=== PATIENT | male | born 1955 | race Caucasian/White ===

== ENCOUNTER → 2023-11-10 14:32 | Outpatient (REF) | payer OTHER, SELFPAY | LOC: RAD 14:32 | PROVIDERS: ATTENDING PHYSICIAN Family Medicine | DX: R60.0 Localized edema (principal); I87.2 Venous insufficiency (chronic) (peripheral) | CPT/HCPCS: 93970 ==

== ENCOUNTER → 2024-02-03 13:00 | Outpatient (REF) | payer OTHER, SELFPAY | LOC: HWRAD 13:00 | PROVIDERS: ATTENDING PHYSICIAN Surgery; FAMILY PHYSICIAN Family Medicine | DX: Z85.528 Personal history of other malignant neoplasm of kidney (principal); Z90.5 Acquired absence of kidney; N18.32 Chronic kidney disease, stage 3b | CPT/HCPCS: 71046; 74176 ==

== ENCOUNTER → 2025-02-09 12:25 | Outpatient (REF) | payer OTHER, SELFPAY | LOC: HWRAD 12:25 | PROVIDERS: ATTENDING PHYSICIAN Surgery; FAMILY PHYSICIAN Family Medicine | DX: C64.2 Malignant neoplasm of left kidney, except renal pelvis (principal) | CPT/HCPCS: 71046; 74176 ==

== ENCOUNTER 2025-02-18 21:36 | Emergency (ER) | payer OTHER, SELFPAY ==
[2025-02-18 21:39] VITALS: BP 163/86
[2025-02-18 22:27] VITALS: BMI 27.2
--- NOTE | 2025-02-18 22:34 | ED.GENMED ---
History of Present Illness
General
Chief Complaint: Abdominal Pain
Source: patient
Exam Limitations: none
Time Seen by Provider: 02/18/25 22:15
History of Present Illness
History of Present Illness:
69-year-old male presents complaining of right lower and right flank pain starting last night getting worse today. The pain is constant without associated nausea or vomiting. He has been constipated last 2 days with very hard small bowel
movements. No fevers. He has a prior history of colon resection from perforated colon with initial colostomy bag and subsequent reanastomosis. He has a history of renal cancer requiring left nephrectomy and has stage IIIb chronic kidney disease.
He is not anticoagulated
Past History
Past History
ED Past Medical History: Asthma, HTN, Hypercholesterolemia and Other
ED Past Surgical History: Orthopedic and Urological
Social History
Tobacco: Non-smoker
Personal:
Living: with family
Employment: Employed
Phy Exam
Physical Exam
Physical Exam:
General: Well-appearing male no acute respiratory distress
HEENT: Normocephalic atraumatic
Heart: Regular rate and rhythm no murmur
Lungs: Clear no wheeze
Abdomen soft but tender to the right lower abdomen mild guarding no rebound tenderness nondistended
Extremities: No cyanosis
Skin is warm no rash
Course
Orders/Labs/Results
Orders:
Orders
02/18/25 22:23
Urinalysis Reflex To Culture Urgent
Date Specimen was Collected: 02/19/25
Time Specimen was Collected: 00:21
02/18/25 22:36
Complete Blood Count/With Diff Urgent
Comprehensive Metabolic Panel Urgent
02/19/25 00:00
CT Abd/pel Without Iv Or Oral Urgent
Reason For Exam: rlq pain, ckd,
02/19/25 00:24
Urine Microscopic Reflex Cult Urgent
Abnormal Lab Results
02/18/25 02/19/25
22:36 00:24
RBC 4.63 L 10^6/uL
(4.70-6.10)
Hct 38.3 L %
(39.0-52.0)
Absolute Lymphs (auto) 1.0 L 10^3/uL
(1.2-3.4)
Lymphocytes % 19.1 L %
(20.5-51.1)
Potassium 3.3 L mmol/L
(3.5-5.1)
BUN 38 H mg/dl
(9-20)
Creatinine 1.7 H mg/dL
(0.7-1.3)
Glucose 207 H mg/dl
(70-99)
Urine Bacteria (Reflex) Few A
(Negative)
Urine Albumin (Reflex) 2+ A
(Neg - Trace)
02/18/25 22:36
02/18/25 22:36
Vital Signs
Initial and Last Documented VS:
Initial Vital Signs
Temp Pulse Resp BP Pulse Ox
98.0 F 83 16 163/86 97
02/18/25 21:39 02/18/25 21:39 02/18/25 21:39 02/18/25 21:39 02/18/25 21:39
Last Documented Vital Signs
Temp Pulse Resp BP Pulse Ox
98.0 F 69 16 163/86 94
02/18/25 21:39 02/18/25 23:45 02/18/25 23:45 02/18/25 21:39 02/18/25 23:45
*Pulse Oximetry
SaO2: 97
Oxygen Mode of Delivery: Room air
Patient hypoxic: no
*Critical Care Note
Total Time (30-74mins, 75-104mins- exclusive of procedures): Not Applicable
Update Note
Update Note:
Right lower abdominal pain. Consider appendicitis versus constipation versus renal colic versus bowel obstruction
Check labs. Will order CT of the abdomen however patient has 1 kidney and has stage IIIb kidney disease will do CAT scan without contrast
CT question is possible mild diffuse thickening of the gallbladder wall however clinically patient is not tender over the right upper quadrant. Liver functions are normal. There is a moderate stool burden. Patient is feeling better since his
arrival. Patient is likely dealing with discomfort from constipation. Recommend stool softeners. Patient and significant other agreeable to discharge. Return precautions were given
ED Attending Note
-
Portions of this chart may have been created with voice recognition software.� Occasional wrong word or��sound alike� substitutions may have occurred due to the inherent limitations of voice recognition software.
Discharge Plan
Departure
Patient Disposition: Home (Routine Discharge)
Date of Disposition: 02/19/25
Time of Disposition: 01:43
Patient with high blood pressure during this ER visit?: No
Discharge Problem:
Abdominal pain
Instructions: Constipation, Adult (DC)
Prescriptions:
No Action
carvedilol 6.25 MG tablet
6.25 mg PO BID
simvastatin 80 MG tablet
80 mg PO DAILY
meloxicam 7.5 MG tablet
7.5 mg PO DAILY
tamsulosin 0.4 MG capsule
0.8 mg PO DAILY
hydroxychloroquine [Plaquenil] 200 MG tablet
200 mg PO BID
olmesartan-hydrochlorothiazide 1 EACH tablet
40 mg PO DAILY
Patient Comments:
CLARIFICATION: DOSE IS 40-25 MG TABLET once daily, confirmed 09/21/21 with med bottle , RN
omeprazole magnesium [Prilosec OTC] 20 MG tablet,delayed release (DR/EC)
20 mg PO DAILY
Patient Comments:
must be brand name prilosec--no omeprazole!
cholecalciferol (vitamin D3) 2,000 UNITS tablet
2,000 units PO DAILY
amlodipine [Norvasc] 10 MG tablet
10 mg PO DAILY Qty: 30 0RF
multivitamin Tablet
1 tab PO DAILY
hydrocodone-acetaminophen 5-325 mg tablet
1 tab PO Q6H PRN (Reason: pain) Qty: 20 0RF
Referrals:
Mina Dominguez, DO [Family Provider, Family Practice]
Activity Restrictions/Additional Instructions:
Drink plenty of clear liquids. Use stool softeners if needed for constipation. Turn if worse otherwise follow-up with your doctor.
Interventions
Interventions:
*Risk Screen - Suicide Last Done: 02/18/25 21:39
*General Assessment Last Done: 02/18/25 21:39
*Neglect/Abuse Screening Last Done: 02/18/25 21:39
*ED- Fall Risk Assessment Last Done: 02/18/25 21:39
*ED COVID-19 Vaccine History Last Done: 02/18/25 21:39
DV-Xtajrd-Zehbqzpjxs Assessment Last Done: 02/18/25 22:26
Discharge Date and Time
Print Language: DIVEHI
[2025-02-18 22:42] LABS: Hematocrit 38.3 % (39.0-52.0); Hemoglobin 13.3 g/dL (13.0-18.0); Mean Corp Hgb Conc. 34.7 g/dL (33.0-37.0); Mean Corpuscular Volume 82.7 fL (80.0-94.0); Nucleated Red Blood Cells % 0 % (-); Platelet Count 141 10^3/uL (130-400); Red Cell Dist. Width 13.0 % (11.5-14.5)
[2025-02-18 23:01] LABS: ALT (SGPT) 21 U/L (0-50); AST (SGOT) 20 U/L (17-59); Albumin 4.6 g/dl (3.5-5.0); Alkaline Phosphatase 90 U/L (38-126); Blood Urea Nitrogen 38 mg/dl (9-20); Calcium 9.2 mg/dl (8.4-10.2); Carbon Dioxide 28 mmol/L (22-30); Chloride 103 mmol/L (98-107); Estimated Creatinine Clearance 44 ml/min; Glucose 207 mg/dl (70-99); Potassium 3.3 mmol/L (3.5-5.1); Sodium 140 mmol/L (135-145); Total Protein 7.1 g/dl (6.3-8.2); eGFR 42.57
[2025-02-19 00:41] LABS: Urine Character Clear (Clear)
[2025-02-19 00:51] LABS: Urine Red Blood Cell None Seen /HPF (0-2)
[2025-02-19 02:22] VITALS: BP 133/82
== END 2025-02-19 02:24 | disposition home or self-care (01) ==
LOC: EMR 21:36
PROVIDERS: Physician Assistant; EMERGENCY PHYSICIAN Emergency Medicine; FAMILY PHYSICIAN Family Medicine
DX: R10.9 Unspecified abdominal pain (principal); J45.909 Unspecified asthma, uncomplicated; E78.00 Pure hypercholesterolemia, unspecified; I12.9 Hypertensive chronic kidney disease with stage 1 through stage 4 chronic kidney disease, or unspecified chronic kidney disease; N18.32 Chronic kidney disease, stage 3b; Z85.528 Personal history of other malignant neoplasm of kidney; Z90.49 Acquired absence of other specified parts of digestive tract; Z90.5 Acquired absence of kidney; Z93.3 Colostomy status
CPT/HCPCS: 99284; 74176; 80053; 81003; 81015; 85025

== ENCOUNTER → 2025-03-02 07:20 | Outpatient (REF) | payer OTHER, SELFPAY | LOC: HWRAD 07:20 | PROVIDERS: ATTENDING PHYSICIAN Family Medicine | DX: K81.9 Cholecystitis, unspecified (principal) | CPT/HCPCS: 76700 ==